=== PATIENT | female | born 1940 | race Caucasian/White ===

== ENCOUNTER → 2024-01-04 16:51 | Outpatient (REF) | payer OTHER, MEDICARE, SELFPAY | LOC: RAD 16:51 | PROVIDERS: ATTENDING PHYSICIAN Internal Medicine; FAMILY PHYSICIAN Internal Medicine | DX: M79.609 Pain in unspecified limb (principal) | CPT/HCPCS: 93971 ==

== ENCOUNTER → 2024-02-07 15:18 | Outpatient (REF) | payer OTHER, SELFPAY | LOC: RAD 15:18 | PROVIDERS: ATTENDING PHYSICIAN Internal Medicine | DX: Z13.6 Encounter for screening for cardiovascular disorders (principal); Z82.49 Family history of ischemic heart disease and other diseases of the circulatory system | CPT/HCPCS: 93880 ==